=== PATIENT | female | born 1995 | race Caucasian/White ===

== ENCOUNTER 2024-07-12 19:40 | Emergency (ER) | payer OTHER ==
[2024-07-12 20:02] VITALS: BP 137/87; PULSE 78; RESP 18; TEMP 97.6; BMI 26.4
[2024-07-12] MEDS: IBUPROFEN 600 MG TABLET (FP) PO ONE (21:05)
== END 2024-07-12 21:59 | disposition home or self-care (01) ==
LOC: JER 19:40 → JERFT 19:40 → JER 21:59
DX: S63.501A Unspecified sprain of right wrist, initial encounter (principal); M54.2 Cervicalgia; M25.512 Pain in left shoulder; V43.52XA Car driver injured in collision with other type car in traffic accident, initial encounter; Y92.410 Unspecified street and highway as the place of occurrence of the external cause
CPT/HCPCS: 71046-TC-FY; 73030-TC-LT-FY; 73110-TC-RT-FY; 99284-25